=== PATIENT | male | born 1960 | race Caucasian/White ===

== ENCOUNTER 2017-01-16 11:31 | Emergency (ER) | payer OTHER ==
[2017-01-16 11:43] VITALS: TEMP 98.4
--- NOTE | 2017-01-16 12:30 | ED ---
General Adult HPI - General Chief complaint: Extremity Problem,Nontraumatic Stated complaint: leg swelling Time Seen by Provider: 01/16/17 11:52 Source: patient, RN notes reviewed, old records reviewed Mode of arrival: ambulatory Limitations: no limitations - History of Present Illness Initial comments: This is a 56-year-old male to the ER for evaluation. The patient comes in for evaluation of lower extremity edema and increased edema throughout his body. Patient currently going to have only treatment for hepatitis C, history of drug abuse history of alcohol abuse history of liver disease. Patient states he has increased swelling and redness of both lower extremities worse than the left with redness started to track up into his thigh area. Significant circumferential swelling of both lower extremities with increased redness and pain in the left leg. Patient denies specific fevers. No new medications - Related Data Home Medications Medication Instructions Recorded Confirmed Amitriptyline HCl [Elavil] 50 mg PO HS 01/16/17 01/16/17 Furosemide [Lasix] 20 mg PO DAILY 01/16/17 01/16/17 Gabapentin 600 mg PO TID 01/16/17 01/16/17 Methadone [Dolophine] 20 mg PO DAILY 01/16/17 01/16/17 Omeprazole [PriLOSEC] 20 mg PO AC-BID 01/16/17 01/16/17 Potassium Chloride [Klor-Con 20] 20 meq PO DAILY 01/16/17 01/16/17 Topiramate [Topamax] 50 mg PO TID 01/16/17 01/16/17 Previous Rx's Medication Instructions Recorded Cephalexin [Keflex] 500 mg PO Q6HR #40 cap 01/16/17 Allergies Allergy/AdvReac Type Severity Reaction Status Date / Time No Known Allergies Allergy Verified 01/16/17 12:55 Review of Systems ROS Statement: Those systems with pertinent positive or pertinent negative responses have been documented in the HPI. ROS Other: All systems not noted in ROS Statement are negative. Past Medical History Past Medical History: Seizure Disorder Additional Past Medical History / Comment(s): vertigo, chronic back pain, history of drug abuse-on methadone History of Any Multi-Drug Resistant Organisms: None Reported Past Surgical History: Orthopedic Surgery Additional Past Surgical History / Comment(s): left leg Past Psychological History: Depression Smoking Status: Current every day smoker Past Alcohol Use History: None Reported Past Drug Use History: Prescription Drug Abuse General Exam Limitations: no limitations General appearance: alert, in no apparent distress Head exam: Present: atraumatic, normocephalic, normal inspection Eye exam: Present: normal appearance, PERRL, EOMI. Absent: scleral icterus, conjunctival injection, periorbital swelling ENT exam: Present: normal exam, mucous membranes moist Neck exam: Present: normal inspection. Absent: tenderness, meningismus, lymphadenopathy Respiratory exam: Present: normal lung sounds bilaterally. Absent: respiratory distress, wheezes, rales, rhonchi, stridor Cardiovascular Exam: Present: regular rate, normal rhythm, normal heart sounds. Absent: systolic murmur, diastolic murmur, rubs, gallop, clicks GI/Abdominal exam: Present: soft, normal bowel sounds. Absent: distended, tenderness, guarding, rebound, rigid Extremities exam: Present: normal inspection, full ROM, normal capillary refill. Absent: tenderness, pedal edema, joint swelling, calf tenderness Back exam: Present: normal inspection Neurological exam: Present: alert, oriented X3, CN II-XII intact Psychiatric exam: Present: normal affect, normal mood Skin exam: Present: warm, dry, intact, normal color. Absent: rash Course Vital Signs 01/16/17 01/16/17 01/16/17 11:39 13:55 14:58 Temperature 98.4 F 98.4 F 98.4 F Pulse Rate 92 67 82 Respiratory 16 18 18 Rate Blood Pressure 127/60 115/57 119/66 O2 Sat by Pulse 93 L 95 95 Oximetry EKG Findings - EKG Comments: EKG Findings:: EKG shows sinus rhythm at 71, DC 150, QRS 86, QTC 421 Medical Decision Making - Medical Decision Making 56 male to ER for evaluation. Patient is here for evaluation of lower extremity edema, lower summary sialitis, ultrasound NEGATIVE FOR DVT, LAB WORK IS NORMAL, PATIENT IS RECOVERING DRUG ADDICT AND ALCOHOLIC WHO SUFFERS FROM HEPATITIS C - Lab Data Result diagrams: 01/16/17 12:45 01/16/17 12:45 Lab Results 01/16/17 01/16/17 01/16/17 Range/Units 12:45 12:45 12:45 WBC 4.4 (3.8-10.6) k/uL RBC 3.45 L (4.30-5.90) m/uL Hgb 11.0 L (13.0-17.5) gm/dL Hct 34.5 L (39.0-53.0) % MCV 100.0 (80.0-100.0) fL MCH 31.9 (25.0-35.0) pg MCHC 31.9 (31.0-37.0) g/dL RDW 14.9 (11.5-15.5) % Plt Count 128 L (150-450) k/uL Neutrophils % 56 % Lymphocytes % 33 % Monocytes % 5 % Eosinophils % 3 % Basophils % 1 % Neutrophils # 2.4 (1.3-7.7) k/uL Lymphocytes # 1.4 (1.0-4.8) k/uL Monocytes # 0.2 (0-1.0) k/uL Eosinophils # 0.1 (0-0.7) k/uL Basophils # 0.0 (0-0.2) k/uL Hypochromasia Slight Macrocytosis Slight PT (9.0-12.0) sec INR (<1.1) APTT (22.0-30.0) sec Sodium 144 (137-145) mmol/L Potassium 3.9 (3.5-5.1) mmol/L Chloride 110 H (98-107) mmol/L Carbon Dioxide 24 (22-30) mmol/L Anion Gap 10 mmol/L BUN 19 (9-20) mg/dL Creatinine 0.90 (0.66-1.25) mg/dL Est GFR (MDRD) Af Amer >60 (>60 ml/min/1.73 sqM) Est GFR (MDRD) Non-Af >60 (>60 ml/min/1.73 sqM) Glucose 101 H (74-99) mg/dL Calcium 8.6 (8.4-10.2) mg/dL Phosphorus 3.9 (2.5-4.5) mg/dL Magnesium 2.1 (1.6-2.3) mg/dL Total Bilirubin 0.5 (0.2-1.3) mg/dL AST 29 (17-59) U/L ALT 21 (21-72) U/L Alkaline Phosphatase 84 (38-126) U/L Total Creatine Kinase 157 (55-170) U/L CK-MB (CK-2) 2.9 H* (0.0-2.4) ng/mL CK-MB (CK-2) Rel Index 1.8 Troponin I <0.012 (0.000-0.034) ng/mL Total Protein 7.8 (6.3-8.2) g/dL Albumin 3.6 (3.5-5.0) g/dL 01/16/17 Range/Units 12:45 WBC (3.8-10.6) k/uL RBC (4.30-5.90) m/uL Hgb (13.0-17.5) gm/dL Hct (39.0-53.0) % MCV (80.0-100.0) fL MCH (25.0-35.0) pg MCHC (31.0-37.0) g/dL RDW (11.5-15.5) % Plt Count (150-450) k/uL Neutrophils % % Lymphocytes % % Monocytes % % Eosinophils % % Basophils % % Neutrophils # (1.3-7.7) k/uL Lymphocytes # (1.0-4.8) k/uL Monocytes # (0-1.0) k/uL Eosinophils # (0-0.7) k/uL Basophils # (0-0.2) k/uL Hypochromasia Macrocytosis PT 10.5 (9.0-12.0) sec INR 1.0 (<1.1) APTT 24.6 (22.0-30.0) sec Sodium (137-145) mmol/L Potassium (3.5-5.1) mmol/L Chloride (98-107) mmol/L Carbon Dioxide (22-30) mmol/L Anion Gap mmol/L BUN (9-20) mg/dL Creatinine (0.66-1.25) mg/dL Est GFR (MDRD) Af Amer (>60 ml/min/1.73 sqM) Est GFR (MDRD) Non-Af (>60 ml/min/1.73 sqM) Glucose (74-99) mg/dL Calcium (8.4-10.2) mg/dL Phosphorus (2.5-4.5) mg/dL Magnesium (1.6-2.3) mg/dL Total Bilirubin (0.2-1.3) mg/dL AST (17-59) U/L ALT (21-72) U/L Alkaline Phosphatase (38-126) U/L Total Creatine Kinase (55-170) U/L CK-MB (CK-2) (0.0-2.4) ng/mL CK-MB (CK-2) Rel Index Troponin I (0.000-0.034) ng/mL Total Protein (6.3-8.2) g/dL Albumin (3.5-5.0) g/dL - Radiology Data Radiology results: report reviewed (Ultrasound is negative for DVT), image reviewed Disposition Clinical Impression: Cellulitis, Bilateral leg edema Disposition: HOME SELF-CARE Condition: Good Instructions: Leg Edema (ED), Cellulitis (ED) Prescriptions: Cephalexin [Keflex] 500 mg PO Q6HR #40 cap Referrals: Azeem Marshall MD [Primary Care Provider] - 1-2 days Santiago Cifuentes MD [REFERRING] - 1-2 days Kamari Faust MD [STAFF PHYSICIAN] - 1-2 days
[2017-01-16 13:00] LABS: Basophils % (A) 1 %; CH 31.3; CHCM 31.5; Eosinophils # (A) 0.1 k/uL (0-0.7); Eosinophils % (A) 3 %; HCT 34.5 % (39.0-53.0); HDW 2.65; Hypochromasia Slight; Luc # (Auto) 0.14; Luc % (Auto) 3; Lymphocytes # (A) 1.4 k/uL (1.0-4.8); Lymphocytes % (A) 33 %; MCH 31.9 pg (25.0-35.0); MCHC 31.9 g/dL (31.0-37.0); Macrocytosis Slight; Mean Platelet Volume 7.4; Monocytes # (A) 0.2 k/uL (0-1.0); Monocytes % (A) 5 %; Neutrophils # (A) 2.4 k/uL (1.3-7.7); Neutrophils % (A) 56 %; RBC 3.45 m/uL (4.30-5.90); RDW 14.9 % (11.5-15.5); WBC 4.4 k/uL (3.8-10.6); WBC (Perox) 4.45
[2017-01-16 13:13] LABS: Partial Thromboplastin Time 24.6 sec (22.0-30.0); Prothrombin Time 10.5 sec (9.0-12.0)
[2017-01-16 13:16] LABS: ALT 21 U/L (21-72); AST 29 U/L (17-59); Alkaline Phosphatase 84 U/L (38-126); Anion Gap 10 mmol/L; Blood Urea Nitrogen 19 mg/dL (9-20); Calcium 8.6 mg/dL (8.4-10.2); Carbon Dioxide 24 mmol/L (22-30); Chloride 110 mmol/L (98-107); Glucose 101 mg/dL (74-99); Magnesium 2.1 mg/dL (1.6-2.3); Non-African American GFR(MDRD) >60 (>60 ml/min/1.73 sqM); Phosphorous 3.9 mg/dL (2.5-4.5); Potassium 3.9 mmol/L (3.5-5.1); Sodium 144 mmol/L (137-145); Total Bilirubin 0.5 mg/dL (0.2-1.3); Total Protein 7.8 g/dL (6.3-8.2)
[2017-01-16 13:31] LABS: Creatine Kinase 157 U/L (55-170)
[2017-01-16 13:44] LABS: Troponin I <0.012 ng/mL (0.000-0.034)
[2017-01-16 13:47] LABS: Creatine Kinase MB 2.9 ng/mL (0.0-2.4)
--- NOTE | 2017-01-16 13:47 | US ---
EXAMINATION TYPE: US venous doppler duplex LE DATE OF EXAM: 01/16/2017 1:36 PM COMPARISON: NONE CLINICAL HISTORY: Pain. SIDE PERFORMED: TECHNIQUE: The lower extremity deep venous system is examined utilizing real time linear array sonog joyce with graded compression, doppler sonography and color-flow sonography. VESSELS IMAGED: External Iliac Vein (EIV) Common Femoral Vein Deep Femoral Vein Greater Saphenous Vein * Femoral Vein Popliteal Vein Small Saphenous Vein * Proximal Calf Veins (* superficial vessels) Right Leg: No evidence of acute DVT as visualized. Superficial thrombus noted within right small sap henous vein Left Leg: No evidence of acute DVT as visualized Technical limitations due to patient's large body habitus, unable to visualize bilateral lower femora l vein for compression IMPRESSION: No evidence for DVT.
[2017-01-16 13:57] VITALS: RESP 18
[2017-01-16 15:01] VITALS: BP 119/66; PULSE 82
== END 2017-01-16 15:00 | disposition home or self-care (01) ==
LOC: EC 11:31
DX: L03.116 Cellulitis of left lower limb (principal); L03.115 Cellulitis of right lower limb; G40.909 Epilepsy, unspecified, not intractable, without status epilepticus; F32.9 Major depressive disorder, single episode, unspecified; F17.200 Nicotine dependence, unspecified, uncomplicated; Z79.899 Other long term (current) drug therapy
CPT/HCPCS: 36415; 93005; 80053; 82550; 82553; 83735; 84100; 84484; 85025; 85610; 85730; 87040; 93970; 99284; 96365; J0696

== ENCOUNTER 2017-01-21 21:41 | Inpatient (IN) | payer OTHER ==
--- NOTE | 2017-01-22 01:18 | XR ---
PROCEDURE: FILM CXR 2 VIEWS HISTORY: 56-year-old male with chest pain. COMPARISON: None TECHNIQUE: Frontal and lateral views of the chest were obtained. FINDINGS: Mildly enlarged cardiac silhouette. Mediastinal silhouette is within normal limits. Patchy consolidation in the right lung, may be due to pneumonia in the appropriate clinical setting. Followup chest x-ray is recommended within 4 weeks. Eventration of the right hemidiaphragm. Bones are unremarkable for age. IMPRESSION: Mildly enlarged cardiac silhouette. Patchy consolidation in the right lung, may be due to pneumonia in the appropriate clinical setting. Followup chest x-ray is recommended within 4 weeks. [employer] 01/22/17 01:28 Verify Receipt Verified receipt with ZOË Malone for THOMAS Garber on 01/22 01:28 (-04:00)
[2017-01-22 02:04] LABS: Appearance,Urine Clear (Clear); Bilirubin,Urine Negative (Negative); Glucose,Urine (UA) Negative (Negative); Ketones,Urine Negative (Negative); Leukocyte Esterase,Urine Negative (Negative); Nitrite,Urine Negative (Negative); Protein,Urine Negative (Negative); Specific Gravity,Urine 1.007 (1.001-1.035); UA Billing (MACRO vs. MICRO) CHEM
--- NOTE | 2017-01-22 02:06 | US ---
PROCEDURE: US VENOUS BILATERAL LOWER EXTREMITIES COMPARISON: Bilateral lower extremity DVT sonogram 01/16/2017 HISTORY: Bilateral lower extremity pain and swelling. TECHNIQUE: Real-time sonographic evaluation of the bilateral lower extremity deep venous systems was performed using linear array sonography with graded compression, doppler sonography/spectral waveform analysis, color-flow sonography, and augmentation. VESSELS IMAGED: External Iliac Vein (EIV) Common Femoral Vein Deep Femoral Vein Femoral Vein Popliteal Vein Proximal Calf Veins Evaluation is limited by body habitus and lower extremity edema. RIGHT: Appropriate compression, augmentation, and color flow identified within the visualized portions of the external iliac vein, common femoral vein, superior aspect of the greater saphenous vein, deep femoral vein, femoral vein, popliteal vein and posterior tibialis vein. Appropriate flow identified within visualized proximal calf veins. LEFT: Appropriate compression, augmentation, and color flow identified within the visualized portions of the external iliac vein, common femoral vein, superior aspect of the greater saphenous vein, deep femoral vein, femoral vein, popliteal vein and posterior tibialis vein. Appropriate flow identified within visualized proximal calf veins. IMPRESSION: 1. No evidence of DVT in the bilateral lower extremities.
--- NOTE | 2017-01-22 02:12 | ED ---
Skin/Abscess/FB HPI - General Chief complaint: Skin/Abscess/Foreign Body Stated complaint: Swollen legs Time Seen by Provider: 01/21/17 23:43 Source: patient, RN notes reviewed, old records reviewed Mode of arrival: wheelchair Limitations: no limitations - History of Present Illness Initial comments: This is a 56-year-old male with chief complaint of bilateral lower extremity swelling. Patient reports a family history of past 2 weeks. Patient states that they're both red. Patient states that his hands are also swelling. Patient reports his diagnosis was cellulitis. He reports that he is not any better after one week of Keflex. He states this became worse. Patient denies any fever or chills. He states that he is occasionally short of breath and has occasional chest pain. - Related Data Home Medications Medication Instructions Recorded Confirmed Amitriptyline HCl [Elavil] 50 mg PO HS 01/16/17 01/21/17 Furosemide [Lasix] 20 mg PO DAILY 01/16/17 01/21/17 Gabapentin 600 mg PO TID 01/16/17 01/21/17 Methadone [Dolophine] 20 mg PO DAILY 01/16/17 01/21/17 Omeprazole [PriLOSEC] 20 mg PO AC-BID 01/16/17 01/21/17 Potassium Chloride [Klor-Con 20] 20 meq PO DAILY 01/16/17 01/21/17 Topiramate [Topamax] 50 mg PO TID 01/16/17 01/21/17 Previous Rx's Medication Instructions Recorded Cephalexin [Keflex] 500 mg PO Q6HR #40 cap 01/16/17 Allergies Allergy/AdvReac Type Severity Reaction Status Date / Time No Known Allergies Allergy Verified 01/21/17 22:23 Review of Systems ROS Statement: Those systems with pertinent positive or pertinent negative responses have been documented in the HPI. ROS Other: All systems not noted in ROS Statement are negative. Past Medical History Past Medical History: Seizure Disorder Additional Past Medical History / Comment(s): vertigo, chronic back pain, history of drug abuse-on methadone History of Any Multi-Drug Resistant Organisms: None Reported Past Surgical History: Orthopedic Surgery Additional Past Surgical History / Comment(s): left leg Past Psychological History: Depression Smoking Status: Current every day smoker Past Alcohol Use History: None Reported Past Drug Use History: None Reported General Exam - General Exam Comments Initial Comments: Pleasant 36-year-old male. No distress. Limitations: no limitations General appearance: alert, in no apparent distress Head exam: Present: atraumatic, normocephalic, normal inspection Eye exam: Present: normal appearance, PERRL, EOMI. Absent: scleral icterus, conjunctival injection, periorbital swelling ENT exam: Present: normal exam, mucous membranes moist Neck exam: Present: normal inspection. Absent: tenderness, meningismus, lymphadenopathy Respiratory exam: Present: normal lung sounds bilaterally. Absent: respiratory distress, wheezes, rales, rhonchi, stridor Cardiovascular Exam: Present: regular rate, normal rhythm, normal heart sounds. Absent: systolic murmur, diastolic murmur, rubs, gallop, clicks GI/Abdominal exam: Present: soft, normal bowel sounds. Absent: distended, tenderness, guarding, rebound, rigid Extremities exam: Present: pedal edema (She has significant bilateral pedal edema. Unable to detect dorsalis pedal pulse due to the swelling. Patient has redness extending up the bilateral legs into the upper thighs.). Absent: normal inspection Back exam: Present: normal inspection Neurological exam: Present: alert, oriented X3, CN II-XII intact Psychiatric exam: Present: normal affect, normal mood Skin exam: Present: warm, dry, intact, normal color. Absent: rash Course Vital Signs 01/21/17 01/22/17 22:19 04:10 Temperature 98.7 F Pulse Rate 86 88 Respiratory 20 16 Rate Blood Pressure 126/64 110/53 O2 Sat by Pulse 97 98 Oximetry Medical Decision Making - Medical Decision Making Is a 56-year-old male with chief complaint of bilateral lower edema and redness. Patient reports inciting repair with Keflex. Patient has bilateral hand swelling as well. Unable to detect dorsalis pedal pulse due to the amount of edema. Patient received bilateral lower extremity Doppler ultrasound. He also showed a chest x-ray with a widened mediastinum and infiltrate. Patient lab work shows elevated d-dimer of 1.37. CT TODD chest was obtained. No evidence of PE. Ultrasound bilateral lower extremities is negative for blood clots. Evidence of multiple lymph nodes and cirrhosis. Patient lab work is all relatively benign at this time. Negative BNP. Patient does have significant edema in all 4 extremities. Patient will be admitted this time consult with cardiology. Less likely to think that the redness over his legs is related to a cellulitis given negative for white blood cell count. Likely related to peripheral vascular disease. Started on Lasix. Patient agrees to admission. Patient does have a history of previous IV drug use, alcoholism. - Lab Data Result diagrams: 01/22/17 01:45 01/22/17 01:45 Lab Results 01/22/17 01/22/17 01/22/17 Range/Units 01:45 01:45 01:45 WBC 5.5 (3.8-10.6) k/uL RBC 3.54 L (4.30-5.90) m/uL Hgb 11.3 L (13.0-17.5) gm/dL Hct 34.4 L (39.0-53.0) % MCV 97.0 (80.0-100.0) fL MCH 31.8 (25.0-35.0) pg MCHC 32.8 (31.0-37.0) g/dL RDW 14.9 (11.5-15.5) % Plt Count 136 L (150-450) k/uL Neutrophils % (Manual) 49.0 % Band Neutrophils % 1.0 % Lymphocytes % (Manual) 41.0 % Monocytes % (Manual) 4.0 % Eosinophils % (Manual) 5.0 % Neutrophils # (Manual) 2.8 (1.3-7.7) k/uL Lymphocytes # (Manual) 2.3 (1.0-4.8) k/uL Monocytes # (Manual) 0.2 (0-1.0) k/uL Eosinophils # (Manual) 0.3 (0-0.7) k/uL Nucleated RBCs 0 (0-0) /100 WBC Polychromasia Present Poikilocytosis (manual Present Anisocytosis (manual) Present PT (9.0-12.0) sec INR (<1.1) APTT (22.0-30.0) sec D-Dimer (<0.60) mg/L FEU Sodium 140 (137-145) mmol/L Potassium 4.3 (3.5-5.1) mmol/L Chloride 107 (98-107) mmol/L Carbon Dioxide 24 (22-30) mmol/L Anion Gap 9 mmol/L BUN 14 (9-20) mg/dL Creatinine 0.90 (0.66-1.25) mg/dL Est GFR (MDRD) Af Amer >60 (>60 ml/min/1.73 sqM) Est GFR (MDRD) Non-Af >60 (>60 ml/min/1.73 sqM) Glucose 90 (74-99) mg/dL Calcium 8.9 (8.4-10.2) mg/dL Magnesium 2.2 (1.6-2.3) mg/dL Total Bilirubin 0.5 (0.2-1.3) mg/dL AST 34 (17-59) U/L ALT 24 (21-72) U/L Alkaline Phosphatase 103 (38-126) U/L Total Creatine Kinase 232 H (55-170) U/L CK-MB (CK-2) 4.4 H* (0.0-2.4) ng/mL CK-MB (CK-2) Rel Index 1.9 Troponin I <0.012 (0.000-0.034) ng/mL NT-Pro-B Natriuret Pep pg/mL Total Protein 8.5 H (6.3-8.2) g/dL Albumin 3.9 (3.5-5.0) g/dL Urine Color Urine Appearance (Clear) Urine pH (5.0-8.0) Ur Specific [place] (1.001-1.035) Urine Protein (Negative) Urine Glucose (UA) (Negative) Urine Ketones (Negative) Urine Blood (Negative) Urine Nitrite (Negative) Urine Bilirubin (Negative) Urine Urobilinogen (<2.0) mg/dL Ur Leukocyte Esterase (Negative) 01/22/17 01/22/17 01/22/17 Range/Units 01:45 01:45 03:00 WBC (3.8-10.6) k/uL RBC (4.30-5.90) m/uL Hgb (13.0-17.5) gm/dL Hct (39.0-53.0) % MCV (80.0-100.0) fL MCH (25.0-35.0) pg MCHC (31.0-37.0) g/dL RDW (11.5-15.5) % Plt Count (150-450) k/uL Neutrophils % (Manual) % Band Neutrophils % % Lymphocytes % (Manual) % Monocytes % (Manual) % Eosinophils % (Manual) % Neutrophils # (Manual) (1.3-7.7) k/uL Lymphocytes # (Manual) (1.0-4.8) k/uL Monocytes # (Manual) (0-1.0) k/uL Eosinophils # (Manual) (0-0.7) k/uL Nucleated RBCs (0-0) /100 WBC Polychromasia Poikilocytosis (manual Anisocytosis (manual) PT 10.6 (9.0-12.0) sec INR 1.1 (<1.1) APTT 24.6 (22.0-30.0) sec D-Dimer 1.34 H (<0.60) mg/L FEU Sodium (137-145) mmol/L Potassium (3.5-5.1) mmol/L Chloride (98-107) mmol/L Carbon Dioxide (22-30) mmol/L Anion Gap mmol/L BUN (9-20) mg/dL Creatinine (0.66-1.25) mg/dL Est GFR (MDRD) Af Amer (>60 ml/min/1.73 sqM) Est GFR (MDRD) Non-Af (>60 ml/min/1.73 sqM) Glucose (74-99) mg/dL Calcium (8.4-10.2) mg/dL Magnesium (1.6-2.3) mg/dL Total Bilirubin (0.2-1.3) mg/dL AST (17-59) U/L ALT (21-72) U/L Alkaline Phosphatase (38-126) U/L Total Creatine Kinase (55-170) U/L CK-MB (CK-2) (0.0-2.4) ng/mL CK-MB (CK-2) Rel Index Troponin I (0.000-0.034) ng/mL NT-Pro-B Natriuret Pep 106 pg/mL Total Protein (6.3-8.2) g/dL Albumin (3.5-5.0) g/dL Urine Color Yellow Urine Appearance Clear (Clear) Urine pH 7.0 (5.0-8.0) Ur Specific [place] 1.007 (1.001-1.035) Urine Protein Negative (Negative) Urine Glucose (UA) Negative (Negative) Urine Ketones Negative (Negative) Urine Blood Negative (Negative) Urine Nitrite Negative (Negative) Urine Bilirubin Negative (Negative) Urine Urobilinogen 3.0 (<2.0) mg/dL Ur Leukocyte Esterase Negative (Negative) 01/22/17 05:48 EKG shows normal sinus rhythm. Left axis deviation. Possibly inferior infarct age undetermined. Ventricular rate 70 bpm. AR interval 150 mg per duration 90 ms. QT QTC 372/4 and normal sensory noticed of this elevation or T-wave inversion. - Radiology Data Radiology results: report reviewed CT [facility] chest shows signs of cirrhosis. Double small mildly enlarged upper abdominal lymph nodes. Multiple small and mildly enlarged mediastinal bilateral hilar nodes. No evidence of PE. Chest x-ray shows cardiomegaly. Possible right lower lobe pneumonia. Disposition Clinical Impression: Bilateral leg edema, Intermittent chest pain, D-dimer, elevated Disposition: ADMITTED IP TO THIS HOSP Condition: Good Time of Disposition: 03:36
[2017-01-22 02:17] LABS: ALT 24 U/L (21-72); AST 34 U/L (17-59); Alkaline Phosphatase 103 U/L (38-126); Anion Gap 9 mmol/L; Blood Urea Nitrogen 14 mg/dL (9-20); Calcium 8.9 mg/dL (8.4-10.2); Carbon Dioxide 24 mmol/L (22-30); Chloride 107 mmol/L (98-107); Glucose 90 mg/dL (74-99); Magnesium 2.2 mg/dL (1.6-2.3); Non-African American GFR(MDRD) >60 (>60 ml/min/1.73 sqM); Potassium 4.3 mmol/L (3.5-5.1); Sodium 140 mmol/L (137-145); Total Bilirubin 0.5 mg/dL (0.2-1.3); Total Protein 8.5 g/dL (6.3-8.2)
[2017-01-22 02:30] LABS: Creatine Kinase 232 U/L (55-170)
[2017-01-22 02:36] LABS: CH 31.9; HCT 34.4 % (39.0-53.0); HDW 2.91; HGB 11.3 gm/dL (13.0-17.5); MCH 31.8 pg (25.0-35.0); MCHC 32.8 g/dL (31.0-37.0); RBC 3.54 m/uL (4.30-5.90); RDW 14.9 % (11.5-15.5); WBC 5.5 k/uL (3.8-10.6); WBC (Perox) 5.35
[2017-01-22 02:43] LABS: Troponin I <0.012 ng/mL (0.000-0.034)
[2017-01-22 02:52] LABS: Creatine Kinase MB 4.4 ng/mL (0.0-2.4)
[2017-01-22] MEDS ORDERED: FUROSEMIDE 10 MG/ML 10 ML VIAL IV STA (03:12)
[2017-01-22 03:35] LABS: INR 1.1 (<1.1); Partial Thromboplastin Time 24.6 sec (22.0-30.0); Prothrombin Time 10.6 sec (9.0-12.0)
[2017-01-22] MEDS ORDERED: IBUPROFEN 400 MG TAB PO PRN (03:37)
[2017-01-22] MEDS ORDERED: KETOROLAC 30 MG/ML 1 ML VIAL IVP PRN (03:37)
[2017-01-22] MEDS ORDERED: ONDANSETRON 4 MG/2 ML VIAL IVP PRN (03:37)
[2017-01-22] MEDS ORDERED: ALPRAZolam 0.25 MG TAB PO PRN (03:37)
[2017-01-22] MEDS ORDERED: NALOXONE 0.4 MG/ML 1 ML VIAL IV PRN (03:37)
[2017-01-22] MEDS ORDERED: RX INFO: IV CONTRAST WAS GIVEN 1 EACH MISC MISCELLANE PRN (03:54)
[2017-01-22 03:55] LABS: Add Differential Manual Differential
[2017-01-22 03:57] LABS: Nucleated Red Blood Cells 0 /100 WBC (0-0); Total Cells Counted 100
[2017-01-22 03:58] LABS: Polychromasia Present
--- NOTE | 2017-01-22 05:35 | CT ---
ADDENDUM - Added by Indigo Lainez M.D. on 01/22/2017 8:08 AM (-07:00) COMPARISON: CT chest 06/14/2013 Multiple small and mildly enlarged mediastinal, hilar, and upper abdominal lymph nodes are similar to prior. PROCEDURE: CTA CHEST HISTORY: 56-year-old male with chest pain. COMPARISON: Chest radiograph 01/22/2017 at 0033 TECHNIQUE: After administration of 85 mL of Omnipaque 350 contrast material intravenously, CT imaging was obtained through the chest. Coronal and sagittal reformations were performed. DOSE: Total Exam volume computed tomography dose index (CTDIvol) = 225.2 mGy and Dose Length Product (DLP) = 973.5 mGY-cm. This CT exam was performed using one or more of the following dose reduction techniques: automated exposure control, adjustment of the mA and/or kV according to patient size, and/or use of iterative reconstruction technique. FINDINGS: Evaluation is limited by motion degradation. Soft tissues: Visualized portions of the thyroid gland are unremarkable. There are multiple small and mildly enlarged mediastinal and bilateral hilar lymph nodes. No significant axillary lymphadenopathy. The heart and great vessels are within normal limits. No evidence of pulmonary embolism to the level of the lobar arteries. The esophagus is unremarkable. Limited evaluation of the upper abdomen demonstrates hepatic morphology with cirrhosis. There are multiple small and mildly enlarged upper abdominal lymph nodes. There is colonic interposition anterior to the liver. Lungs: Bilateral atelectasis. There are a few small scattered calcified pulmonary nodules, likely due to prior granulomatous exposure. No pleural effusion. The airway is patent. Bones: Chronic posttraumatic right rib deformities. Chronic fractures of the C7 and T1 spinous processes. Mild multilevel degenerative changes in the thoracic spine IMPRESSION: 1. Cirrhosis. 2. Double small and mildly enlarged upper abdominal lymph nodes. 3. Multiple small and mildly enlarged mediastinal and bilateral hilar lymph nodes. 4. No evidence of pulmonary embolism to the level of the lobar arteries. 5. Other findings as detailed above.
[2017-01-22] MEDS: SODIUM CHLORIDE 0.9% 1,000 ML IV SCH ×3 (08:10→21:04)
[2017-01-22] MEDS: POTASSIUM CHLORIDE ER 20 MEQ TAB.ER PO SCH (08:24)
[2017-01-22] MEDS: TOPIRAMATE 25 MG TAB PO SCH ×3 (08:24→21:05)
[2017-01-22] MEDS: GABAPENTIN 300 MG CAP PO SCH ×3 (08:24→21:43)
[2017-01-22] MEDS: PANTOPRAZOLE 40 MG/10 ML VIAL IV SCH (08:25)
[2017-01-22] MEDS: METHADONE 10 MG TAB PO SCH (08:25)
[2017-01-22] MEDS: PANTOPRAZOLE 40 MG TABLET PO SCH ×2 (08:26→17:04)
[2017-01-22] MEDS ORDERED: IV VANCOMYCIN PER PHARMACY 1 EACH MISC MISCELLANE PRN (14:56)
--- NOTE | 2017-01-22 15:59 | P.CRDCN ---
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 The patient presented to the hospital a few days before with swelling of the lower extremities and he was diagnosed with cellulitis and was discharged home. He did not feel better and the swelling has progressed. He denies having any exertional dyspnea, orthopnea, or PND. He did not have any symptoms of chest pain or discomfort. The patient is not aware of any prior cardiac history and never been diagnosed was congestive heart failure in the past. He underwent bilateral lower extremities venous duplex study which came in to be unremarkable for DVT. The EKG showed sinus rhythm with low-voltage QRS and without any ischemic changes. The patient was admitted to the hospital and was started on antibiotic for cellulitis. I am going to add Lasix IV to the current medical treatment. Clearly he does have bilateral lower extremities edema in addition to the cellulitis. We'll obtain an echocardiogram was Doppler as well. Past Medical History Past Medical History: Seizure Disorder Additional Past Medical History / Comment(s): vertigo, chronic back pain, history of drug abuse-on methadone History of Any Multi-Drug Resistant Organisms: None Reported Past Surgical History: Orthopedic Surgery Additional Past Surgical History / Comment(s): left leg Past Psychological History: Depression Smoking Status: Current every day smoker Past Alcohol Use History: None Reported Past Drug Use History: None Reported Medications and Allergies Home Medications Medication Instructions Recorded Confirmed Type Amitriptyline HCl [Elavil] 50 mg PO HS 01/16/17 01/22/17 History Furosemide [Lasix] 20 mg PO DAILY 01/16/17 01/22/17 History Gabapentin 600 mg PO TID 01/16/17 01/22/17 History Omeprazole [PriLOSEC] 20 mg PO AC-BID 01/16/17 01/22/17 History Potassium Chloride [Klor-Con 20] 20 meq PO DAILY 01/16/17 01/22/17 History Topiramate [Topamax] 50 mg PO BID 01/16/17 01/22/17 History Meclizine HCl 12.5 mg PO TID 01/22/17 01/22/17 History Methadone HCl [Methadone Intensol] 120 mg PO DAILY 01/22/17 01/22/17 History Allergies Allergy/AdvReac Type Severity Reaction Status Date / Time No Known Allergies Allergy Verified 01/22/17 08:49 Physical Exam Vitals: Vital Signs Temp Pulse Resp BP Pulse Ox 01/22/17 12:00 97.6 F 81 16 101/54 95 01/22/17 08:00 97.6 F 81 16 120/56 94 L 01/22/17 06:28 77 18 01/22/17 05:04 97.1 F L 77 18 136/84 97 Intake and Output 01/22/17 01/22/17 01/22/17 06:59 14:59 22:59 Output Total 1999 Balance -1999 Output: Urine 1999 Other: Voiding Method Toilet Toilet Urinal Urinal Weight 136.078 kg - Constitutional General appearance: no acute distress - Respiratory Respiratory: bilateral: CTA - Cardiovascular Rhythm: regular Heart sounds: normal: S1, S2 Results 01/22/17 01:45 01/22/17 01:45 Current Medications Generic Name Dose Route Start Last Admin Trade Name Freq PRN Reason Stop Dose Admin Alprazolam 0.25 mg 01/22/17 03:37 Xanax PO Q6HR PRN Anxiety Amitriptyline HCl 50 mg 01/22/17 21:00 Elavil PO HS LUCHO Gabapentin 600 mg 01/22/17 09:00 01/22/17 08:24 Neurontin PO 600 mg TID LUCHO Administration Sodium Chloride 1,000 mls @ 100 mls/hr 01/22/17 03:15 01/22/17 08:10 Saline 0.9% IV Not Given .Q10H LUCHO Vancomycin HCl 2,000 mg/ 500 mls @ 167 mls/hr 01/22/17 16:00 Sodium Chloride IVPB 01/22/17 18:59 ONCE ONE Vancomycin HCl 2,000 mg/ 500 mls @ 167 mls/hr 01/23/17 06:00 Sodium Chloride IVPB Q12H LUCHO Ibuprofen 400 mg 01/22/17 03:37 Motrin PO Q6HR PRN Mild Pain or Fever > 100.5 Ketorolac Tromethamine 30 mg 01/22/17 03:37 Toradol IVP 01/27/17 03:38 Q6HR PRN Moderate Pain Methadone HCl 20 mg 01/22/17 09:00 01/22/17 08:25 Dolophine PO 20 mg DAILY LUCHO Administration Miscellaneous Information 1 each 01/22/17 03:54 Rx Info: Iv Contrast Was Given MISCELLANE 01/24/17 03:54 DAILY PRN Per Protocol Naloxone HCl 0.2 mg 01/22/17 03:37 Narcan IV Q2M PRN Opioid Reversal Ondansetron HCl 4 mg 01/22/17 03:37 Zofran IVP Q8HR PRN Nausea And Vomiting Pantoprazole Sodium 40 mg 01/22/17 09:00 01/22/17 08:25 Protonix IV 40 mg DAILY LUCHO Administration Pantoprazole Sodium 40 mg 01/22/17 07:30 01/22/17 08:26 Protonix PO Not Given AC-BID LUCHO Potassium Chloride 20 meq 01/22/17 09:00 01/22/17 08:24 K-Dur 20 PO 20 meq DAILY LUCHO Administration Topiramate 50 mg 01/22/17 09:00 01/22/17 08:24 Topamax PO 50 mg TID LUCHO Administration Intake and Output 01/22/17 01/22/17 01/22/17 06:59 14:59 22:59 Output Total 1999 -1999 Output: Urine 1999 Other: Voiding Method Toilet Toilet Urinal Urinal Weight 136.078 kg Assessment and Plan Plan: Assessment Bilateral lower extremities edema Bilateral lower extremity cellulitis Obesity Plan The patient is on antibiotic I would add Lasix IV to the current medical treatment Obtain an echocardiogram was Doppler Follow-up with the patient
[2017-01-22] MEDS ORDERED: VANCOMYCIN 2,000 MG in SODIUM CHLORIDE 0.9% 500 ML IVPB ONE (16:00)
--- NOTE | 2017-01-22 19:06 | HP ---
DATE OF ADMISSION: 01/22/2017 CHIEF COMPLAINT: Swelling particularly in the lower extremities and pain in the left lower leg. HISTORY OF PRESENT ILLNESS: This is the first admission for this 56-year-old white male. He came to the emergency room because of pain in the left lower leg. He is probably developing cellulitis. He has had a compound fracture of the lower leg in the past. He has had no fever or chills and he presently is afebrile. REVIEW OF SYSTEMS: He has had no neurologic problems, chest pain, shortness of breath, heart disease, hypertension, murmurs, rheumatic fever, orthopnea, PND, abdominal pain, nausea, vomiting, melena, hematochezia, colitis, diverticulosis, diverticulitis, hemorrhoids, jaundice, hepatitis, cirrhosis, hematuria, frequency, urgency, dysuria, renal disease, diabetes, et cetera. Past medical history, family history, personal and social histories reveal that he has a history of seizure disorder. He is not allergic to any medications. He takes: 1. Topamax. 2. Neurontin. 3. Elavil. 4. Prilosec. 5. Antivert. 6. He is apparently on methadone. He states he is on 120 mg a day. He smokes about a pack a day, but does not drink. PHYSICAL EXAM: Blood pressure 107/59, pulse 87, respirations 18. He is afebrile. GENERAL: Appeared to be obese and a little bit lethargic. HEENT: Head, ears, eyes, nose, mouth, and throat were normal. NECK: Neck veins not distended. Chest is clear. Cardiac exam is normal. No murmurs or extra sounds. ABDOMEN: Soft, nontender. Extremities demonstrated cellulitis of both lower legs with the left being a little bit worse than the right and there are multiple scars in the left lower leg. Pulses are good. NEUROLOGICAL: Intact. IMPRESSION: 1. Cellulitis of the lower extremities. 2. History of compound fracture of the left lower leg. 3. Seizure disorder. 4. History of narcotic abuse. PLAN: 1. Bed rest. 2. IV fluids. 3. Intravenous antibiotics.
[2017-01-22] MEDS: FUROSEMIDE 10 MG/ML 4 ML VIAL IV SCH (21:05)
[2017-01-22] MEDS: AMITRIPTYLINE HCL 50 MG TAB PO SCH (21:05)
[2017-01-23] MEDS: VANCOMYCIN 2,000 MG in SODIUM CHLORIDE 0.9% 500 ML IVPB SCH ×2 (05:55→17:51)
[2017-01-23] MEDS: TOPIRAMATE 25 MG TAB PO SCH ×3 (08:36→21:20)
[2017-01-23] MEDS: GABAPENTIN 300 MG CAP PO SCH ×3 (08:36→21:20)
[2017-01-23] MEDS: PANTOPRAZOLE 40 MG TABLET PO SCH ×2 (08:37→17:50)
[2017-01-23] MEDS: PANTOPRAZOLE 40 MG/10 ML VIAL IV SCH (08:37)
[2017-01-23] MEDS: FUROSEMIDE 10 MG/ML 4 ML VIAL IV SCH ×2 (08:37→20:34)
[2017-01-23] MEDS: POTASSIUM CHLORIDE ER 20 MEQ TAB.ER PO SCH (08:37)
[2017-01-23 08:50] LABS: Anion Gap 9 mmol/L; Blood Urea Nitrogen 16 mg/dL (9-20); Calcium 8.5 mg/dL (8.4-10.2); Carbon Dioxide 26 mmol/L (22-30); Chloride 105 mmol/L (98-107); Glucose 95 mg/dL (74-99); Non-African American GFR(MDRD) >60 (>60 ml/min/1.73 sqM); Potassium 4.1 mmol/L (3.5-5.1); Sodium 140 mmol/L (137-145)
[2017-01-23] MEDS: METHADONE 10 MG TAB PO SCH ×2 (10:56→11:59)
--- NOTE | 2017-01-23 12:15 | ECHOF ---
Referral Reason:nstemi MEASUREMENTS -------- HEIGHT: 182.9 cm WEIGHT: 136.1 kg BP: 131/77 RVIDd: 3.5 cm (< 3.3) IVSd: 1.5 cm (0.6 - 1.1) LVIDd: 4.3 cm (3.9 - 5.3) LVPWd: 1.5 cm (0.6 - 1.1) IVSs: 1.8 cm LVIDs: 3.1 cm LVPWs: 2.0 cm LA Diam: 3.9 cm (2.7 - 3.8) Ao Diam: 3.2 cm (2.0 - 3.7) AV Cusp: 2.5 cm (1.5 - 2.6) MV EXCURSION: 18.807 mm (> 18.000) MV EF SLOPE: 98 mm/s (70 - 150) EPSS: 0.4 cm MV E Bonifacio: 0.87 m/s MV DecT: 194 ms MV A Bonifacio: 0.66 m/s MV E/A Ratio: 1.33 RAP: 5.00 mmHg RVSP: 40.40 mmHg FINDINGS -------- Sinus rhythm. This was a technically difficult study with suboptimal views. The left ventricular size is normal. There is moderate concentric left ventricular hypertrophy. Overall left ventricular systolic function is normal with, an EF between 60 - 65 %. The right ventricle is mildly enlarged. The left atrial size is normal. The right atrium is normal in size. 1.5mg of Definity was utilized for enhancement of images. No enhancement was noted and images remained poor. The aortic valve is trileaflet and appears structurally normal. The mitral valve is normal. Mild tricuspid regurgitation present. There is mild pulmonary hypertension. The right ventricular systolic pressure, as measured by Doppler, is 40.40mmHg. Trace/mild (physiologic) pulmonic regurgitation. The aortic root size is normal. The pericardium is normal. CONCLUSIONS -------- 1. Sinus rhythm. 2. The mitral valve is normal. 3. Mild tricuspid regurgitation present. 4. There is mild pulmonary hypertension. 5. The right ventricular systolic pressure, as measured by Doppler, is 40.40mmHg. 6. Trace/mild (physiologic) pulmonic regurgitation. 7. The aortic root size is normal. 8. The pericardium is normal. 9. This was a technically difficult study with suboptimal views. 10. The left ventricular size is normal. 11. There is moderate concentric left ventricular hypertrophy. 12. Overall left ventricular systolic function is normal with, an EF between 60 - 65 %. 13. The right ventricle is mildly enlarged. 14. The left atrial size is normal. 15. 1.5mg of Definity was utilized for enhancement of images. No enhancement was noted and images remained poor. 16. The aortic valve is trileaflet and appears structurally normal. TRACK VEHICLE REPAIRER: Sharee Mitchell RDCS
--- NOTE | 2017-01-23 17:53 | PN ---
Mr. Zamorano is a gentleman with lower extremity edema who was seen by Dr. Leslie yesterday. He had an echocardiogram performed today which shows a somewhat technically a difficult study, and even with Definity I could not see good images, but overall ejection fraction is well preserved. There is mild to moderate pulmonary hypertension and mild right ventricular enlargement. The lower extremity edema is probably related to that. He is resting comfortably. He denies chest pain. Blood pressure is 130/70, pulse rate 70 per minute. There is JVD of 1 cm; no carotid bruit. S1, S2 heard normally. Heart sounds are heard somewhat distantly. I do not hear any significant murmurs. Lungs reveal diminished air entry. Abdomen and lower extremity exam unchanged. Lower extremity edema seems to be somewhat better. IMPRESSION: 1. Lower extremity edema related to probably local causes and venous insufficiency. There is also some cellulitis. 2. No evidence to suggest any diastolic of systolic heart failure. I will continue Lasix IV for now, check a BMP tomorrow. Will consider switching him to oral Lasix in the morning. I discussed my thoughts in detail with the patient. Thank you very much for the consult.
[2017-01-23] MEDS: SODIUM CHLORIDE 0.9% 1,000 ML IV SCH (17:54)
[2017-01-23] MEDS: AMITRIPTYLINE HCL 50 MG TAB PO SCH (20:34)
[2017-01-24] MEDS ORDERED: VANCOMYCIN TROUGH DUE 1 EACH MISC MISCELLANE ONE (05:00)
[2017-01-24] MEDS: VANCOMYCIN 2,000 MG in SODIUM CHLORIDE 0.9% 500 ML IVPB SCH (05:28)
[2017-01-24 07:40] VITALS: BP 130/73; PULSE 60; RESP 16; TEMP 97.5
[2017-01-24] MEDS: GABAPENTIN 300 MG CAP PO SCH (08:45)
[2017-01-24] MEDS: POTASSIUM CHLORIDE ER 20 MEQ TAB.ER PO SCH (08:45)
[2017-01-24] MEDS: PANTOPRAZOLE 40 MG TABLET PO SCH (08:45)
[2017-01-24] MEDS: TOPIRAMATE 25 MG TAB PO SCH (08:46)
[2017-01-24] MEDS: METHADONE 10 MG TAB PO SCH (08:48)
[2017-01-24] MEDS ORDERED: FUROSEMIDE 40 MG TAB PO SCH (09:00)
[2017-01-24 09:54] VITALS: BMI 42.1
--- NOTE | 2017-01-24 10:23 | P.DS ---
Providers Date of admission: 01/22/17 04:41 Expected date of discharge: 01/24/17 Attending physician: Epi Coffey Consults: 01/22/17 05:28 Consult Physician Stat Consulting Provider: Rasheed Leslie Consult Reason/Comments: bilateral edema, intermittent chest pain Do you want consulting provider notified?: Yes, Notify in am Primary care physician: Stated None Hospital Course: 56-year-old who presented with a chief complaint of lower extremity edema. Patient has evidence of cellulitis on admission. Echocardiogram obtained showed no evidence of diastolic or systolic heart failure. Cardiology did participate in the plan of care. Patient was started on IV Lasix and did diurese and there was a noted improvement in patient's clinical status. Patient was felt to be appropriate to be discharged home. Patient presented to the hospital with a chief complaint of developing edema to the lower extremities ongoing for the past several days. A 12-lead EKG showed sinus. Patient was started on IV antibiotics for the cellulitis. Patient did have a computed tomography scan of the chest showed no evidence of a pulmonary emboli. Additionally patient had bilateral Doppler studies to the lower extremities it showed no evidence of a DVT. Patient was felt to be appropriate to be discharged home Impression discharge diagnosis Present on admission bilateral lower extremity cellulitis Echocardiogram this admission preserved LV function no evidence of diastolic or systolic heart failure Morbid obesity BMI 42 History of drug abuse on methadone Current every day smoker 1 pack daily greater than a 20 year history The above dictated assessment and findings were discussed with dr coffey . Impression and the plan of care have been dictated as directed. Jeniffer Smith nurse practitioner acting as a scribe for dr coffey Patient Condition at Discharge: Good Plan - Discharge Summary New Discharge Prescriptions: Clindamycin HCl [Cleocin] 300 mg PO Q6HR #40 cap Furosemide [Lasix] 40 mg PO DAILY #30 tab Discharge Medication List Amitriptyline HCl [Elavil] 50 mg PO HS 01/16/17 [History] Gabapentin 600 mg PO TID 01/16/17 [History] Omeprazole [PriLOSEC] 20 mg PO AC-BID 01/16/17 [History] Potassium Chloride [Klor-Con 20] 20 meq PO DAILY 01/16/17 [History] Topiramate [Topamax] 50 mg PO BID 01/16/17 [History] Meclizine HCl 12.5 mg PO TID 01/22/17 [History] Methadone HCl [Methadone Intensol] 120 mg PO DAILY 01/22/17 [History] Clindamycin HCl [Cleocin] 300 mg PO Q6HR #40 cap 01/24/17 [Rx] Furosemide [Lasix] 40 mg PO DAILY #30 tab 01/24/17 [Rx] Follow up Appointment(s)/Referral(s): None,Stated [Primary Care Provider] - 1-2 days Epi Coffey MD [STAFF PHYSICIAN] - 01/26/17 Discharge Disposition: HOME SELF-CARE
[2017-01-24 10:25] LABS: Anion Gap 10 mmol/L; Blood Urea Nitrogen 16 mg/dL (9-20); Carbon Dioxide 28 mmol/L (22-30); Chloride 104 mmol/L (98-107); Glucose 130 mg/dL (74-99); Non-African American GFR(MDRD) >60 (>60 ml/min/1.73 sqM); Potassium 3.8 mmol/L (3.5-5.1); Sodium 142 mmol/L (137-145)
--- NOTE | 2017-01-24 11:33 | PN ---
Mr. Zamorano feels better. His weight is actually higher than yesterday, but I think this is an error. He feels better. His edema of lower extremities has improved. Denies chest pain. He has no shortness of breath, ambulating without symptoms. His blood pressure today is 130/70, pulse rate is 62 per minute, regular. There is JVD of 1 cm. No carotid bruit. S1, S2 heard normally, but distantly. Lungs are clear. Abdomen is soft, nontender. Lower extremity edema is improved remarkably. From a cardiac standpoint, no intervention is necessary. He can be discharged on oral Lasix. His potassium level was good yesterday, but he needs to have electrolytes checked in one week and I discussed this with the patient. He will have it performed through his primary care physician, Dr. Marshall. PHYSICAL EXAM: There are no new significant findings. His edema has improved and he can be discharged today.
--- NOTE | 2017-01-24 18:39 | PN ---
CHIEF COMPLAINT: Generalized edema and cellulitis of the lower extremities. HISTORY OF PRESENT ILLNESS: This gentleman is doing a little bit better. Antibiotics are improving the pain and the edema has gone down. PHYSICAL EXAMINATION: Chest is clear. Cardiac exam is normal. ABDOMEN: Soft and nontender. IMPRESSION: Cellulitis of both lower extremities with generalized edema. PLAN: Continue with IV fluids and antibiotics. This is thought to be related to his infection and stasis problems in the lower extremities.
--- NOTE | 2017-01-24 22:51 | PN ---
DATE OF SERVICE: 01/24/2017 CHIEF COMPLAINT: Edema and cellulitis of the lower extremities. HISTORY OF PRESENT ILLNESS: This gentleman is doing well and is probably able to go home. Cellulitis is improving and pain is under good control. There is less swelling. PHYSICAL EXAMINATION: His chest is clear. Cardiac exam is normal. The abdomen is protuberant and soft. Extremities are normal, other than the lower legs, which are definitely improving. IMPRESSION: 1. Cellulitis of the lower legs. 2. Old compound fracture of the left lower leg. 3. History of narcotic abuse. PLAN: Probably home later today. This will be arranged by the nurse practitioner.
== END 2017-01-24 11:06 | disposition home or self-care (01) | DRG 603 ==
LOC: EC 21:41 → 6SEL 01-22 04:41 → 4MS4W 01-22 18:36
PROVIDERS: ADMIT Family Medicine; ATTEND Family Medicine
DX: L03.115 Cellulitis of right lower limb (principal); I27.2 Other secondary pulmonary hypertension; E66.01 Morbid (severe) obesity due to excess calories; I87.2 Venous insufficiency (chronic) (peripheral); L03.116 Cellulitis of left lower limb; F17.210 Nicotine dependence, cigarettes, uncomplicated; G40.909 Epilepsy, unspecified, not intractable, without status epilepticus; F32.9 Major depressive disorder, single episode, unspecified; G89.29 Other chronic pain; M54.9 Dorsalgia, unspecified; R07.9 Chest pain, unspecified; Z79.899 Other long term (current) drug therapy; Z68.41 Body mass index [BMI] 40.0-44.9, adult
CPT/HCPCS: 36415; 71020; 71275; 80048; 80053; 81003; 82550; 82553; 83735; 83880; 84484; 85025; 85379; 85610; 85730; 93005; 93306; 93970; 96374; 99285

== ENCOUNTER 2017-03-25 08:31 | Emergency (ER) | payer OTHER ==
[2017-03-25 08:37] VITALS: BP 127/66; PULSE 77; RESP 20; TEMP 98.7
--- NOTE | 2017-03-25 09:02 | ED ---
General Adult HPI - General Chief complaint: Extremity Problem,Nontraumatic Stated complaint: LEFT LEG AND ANKLE SWOLLEN AND LEAKING Time Seen by Provider: 03/25/17 08:43 Source: patient, RN notes reviewed Mode of arrival: wheelchair Limitations: no limitations - History of Present Illness Initial comments: Patient's a 57-year-old male who presents emergency room today with chief complaint of left lower leg swelling and edema over the last 5 days. Patient does admit that he's had similar symptoms was the past when he was diagnosed cellulitis. Patient does admit that he's noticed some pain some discomfort that 's been increasing the last few days. Does admit some mild redness to the area was some increased swelling. Does admit that he noticed some clear drainage coming from the left lower ramírez area over the last night. Patient denies any other complaints or symptoms. Denies any injury or trauma. Denies any difficulty breathing or shortness of breath. He does admit to a history of previous drug abuse currently on methadone and history of hepatitis C. Patient denies any recent fever, chills, shortness of breath, chest pain, back pain, abdominal pain, nausea or vomiting, numbness or tingling, dysuria or hematuria, constipation or diarrhea, headaches or visual changes, or any other complaints. - Related Data Home Medications Medication Instructions Recorded Confirmed Amitriptyline HCl [Elavil] 50 mg PO HS 01/16/17 01/22/17 Gabapentin 600 mg PO TID 01/16/17 01/22/17 Omeprazole [PriLOSEC] 20 mg PO AC-BID 01/16/17 01/22/17 Potassium Chloride [Klor-Con 20] 20 meq PO DAILY 01/16/17 01/22/17 Topiramate [Topamax] 50 mg PO BID 01/16/17 01/22/17 Meclizine HCl 12.5 mg PO TID 01/22/17 01/22/17 Methadone HCl [Methadone Intensol] 120 mg PO DAILY 01/22/17 01/22/17 Previous Rx's Medication Instructions Recorded Clindamycin HCl [Cleocin] 300 mg PO Q6HR #40 cap 01/24/17 Furosemide [Lasix] 40 mg PO DAILY #30 tab 01/24/17 Cephalexin [Keflex] 500 mg PO Q12HR 10 Days 03/25/17 Allergies Allergy/AdvReac Type Severity Reaction Status Date / Time No Known Allergies Allergy Verified 03/25/17 08:37 Review of Systems ROS Statement: Those systems with pertinent positive or pertinent negative responses have been documented in the HPI. ROS Other: All systems not noted in ROS Statement are negative. Past Medical History Past Medical History: Seizure Disorder Additional Past Medical History / Comment(s): vertigo, chronic back pain, history of drug abuse-on methadone History of Any Multi-Drug Resistant Organisms: None Reported Past Surgical History: Orthopedic Surgery Additional Past Surgical History / Comment(s): left leg Past Psychological History: Depression Smoking Status: Current every day smoker Past Alcohol Use History: None Reported Past Drug Use History: None Reported General Exam - General Exam Comments Initial Comments: General: The patient is awake and alert, in no distress, and does not appear acutely ill. Eye: Pupils are equal, round and reactive to light, extra-ocular movements are intact. No nystagmus. There is normal conjunctiva bilaterally. No signs of icterus. Ears, nose, mouth and throat: There are moist mucous membranes and no oral lesions. Neck: The neck is supple, there is no tenderness or JVD. Cardiovascular: There is a regular rate and rhythm. No murmur, rub or gallop is appreciated. Respiratory: Lungs are clear to auscultation, respirations are non-labored, breath sounds are equal. No wheezes, stridor, rales, or rhonchi. Gastrointestinal: Soft, non-distended, non-tender abdomen without masses or organomegaly noted. There is no rebound or guarding present. No CVA tenderness. Bowel sounds are unremarkable. Musculoskeletal: Normal ROM, no tenderness. Strength 5/5. Sensation intact. Pulses equal bilaterally 2+. Neurological: A&O x 3. CN II-XII intact, There are no obvious motor or sensory deficits. Coordination appears grossly intact. Speech is normal. Skin: Mild swelling to the lower extremity's. Mild increased redness to the left side. Patient does have a clear drainage coming from an old suture line from a old trauma to the left ankle. Fluid is clear in color. No lymphangitic streaking. Mild tenderness on exam to the anterior aspect of left ankle and lower ramírez. Psychiatric: Cooperative, appropriate mood & affect, normal judgment. Limitations: no limitations Course Vital Signs 03/25/17 08:34 Temperature 98.7 F Pulse Rate 77 Respiratory 20 Rate Blood Pressure 127/66 O2 Sat by Pulse 95 Oximetry Medical Decision Making - Medical Decision Making Case discussed in detail with attending physician Dr. Jane. Patient's ultrasound negative for any acute DVT. Results were discussed with the patient. He'll be started on antibiotics cover for cellulitis infection as he does mention that he had similar findings in January of this year and was started on antibiotics. Patient is advised close follow-up family doctor over the next 2 days return here to the emergency room if any symptoms increase or worsen or for any other concerns. Disposition Clinical Impression: Cellulitis Disposition: HOME SELF-CARE Condition: Good Instructions: Cellulitis (ED) Additional Instructions: Please use medication as discussed. Please follow-up with family doctor in the next 2 days of symptoms have not improved. Please return to emergency room if the symptoms increase or worsen or for any other concerns. Prescriptions: Cephalexin [Keflex] 500 mg PO Q12HR 10 Days Referrals: Epi Castanon MD [Primary Care Provider] - 1-2 days Time of Disposition: 10:00
--- NOTE | 2017-03-25 09:54 | US ---
EXAMINATION TYPE: US venous doppler duplex LE LT DATE OF EXAM: 03/25/2017 9:23 AM COMPARISON: US 2017 CLINICAL HISTORY: 57-year-old male with Pain. EC patient with left lower leg pain, redness, and serou s drainage from left anterior lower leg incision scars from prior compound fracture 1994. Patient 's stated he had been up on feet 2 days in row mowing lawn, etc.; large body habitus SIDE PERFORMED: Left TECHNIQUE: The lower extremity deep venous system is examined utilizing real time linear array sonog joyce with graded compression, doppler sonography and color-flow sonography. FINDINGS: VESSELS IMAGED: Common Femoral Vein Deep Femoral Vein Greater Saphenous Vein * Femoral Vein Popliteal Vein Small Saphenous Vein * Proximal Calf Veins Posterior tibial veins (* superficial vessels) Left Leg: Negative for DVT IMPRESSION: No evidence for DVT within the left lower extremity.
== END 2017-03-25 10:05 | disposition home or self-care (01) ==
LOC: EC 08:31
DX: L03.116 Cellulitis of left lower limb (principal); R60.0 Localized edema; G40.909 Epilepsy, unspecified, not intractable, without status epilepticus; F32.9 Major depressive disorder, single episode, unspecified; F17.200 Nicotine dependence, unspecified, uncomplicated; Z79.899 Other long term (current) drug therapy; Z86.69 Personal history of other diseases of the nervous system and sense organs; Z87.898 Personal history of other specified conditions; Z98.890 Other specified postprocedural states
CPT/HCPCS: 99283

== ENCOUNTER 2017-10-27 13:39 | Emergency (ER) | payer OTHER ==
[2017-10-27 13:58] VITALS: BP 144/79; PULSE 86; RESP 18; TEMP 98
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
--- NOTE | 2017-10-27 14:25 | XR ---
EXAMINATION TYPE: XR wrist complete RT DATE OF EXAM: 10/27/2017 COMPARISON: Right hand same date HISTORY: Pain swelling after punching injury TECHNIQUE: 4 view right wrist FINDINGS: Dedicated images over the right wrist are negative without evidence of fracture or dislocat ion within the carpal region. The joint spaces at this level are normal. Follow-up exam can be perfor med 7-10 days from acute trauma for continued pain. If there is pain at the anatomic snuff box, nucle ar medicine bone scan could be performed for additional evaluation. Note is made of a distal comminuted third metacarpal fracture. See right hand dictation same date. IMPRESSION: 1. Normal 4 view right wrist. Follow-up exams can be performed 7-10 days from acute trauma for nory nued pain within the wrist region. 2. Comminuted distal metaphyseal third metacarpal fracture. Please see hand dictation same date
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
== END 2017-10-27 14:48 | disposition home or self-care (01) ==
LOC: EC 13:39
DX: S62.302A Unspecified fracture of third metacarpal bone, right hand, initial encounter for closed fracture (principal); W22.01XA Walked into wall, initial encounter; F32.9 Major depressive disorder, single episode, unspecified; F17.200 Nicotine dependence, unspecified, uncomplicated; Z86.69 Personal history of other diseases of the nervous system and sense organs; Z79.891 Long term (current) use of opiate analgesic; Z79.899 Other long term (current) drug therapy
CPT/HCPCS: 29125; 99283

== ENCOUNTER 2018-03-25 16:45 | Emergency (ER) | payer OTHER ==
[2018-03-25 16:59] VITALS: RESP 18; TEMP 98.3
[2018-03-25] MEDS ORDERED: IBUPROFEN 800 MG TAB PO STA (17:37)
[2018-03-25] MEDS ORDERED: DIPH,PERTUS(ACELL)TETVAC-LF 0.5 ML VIAL IM ONE (17:39)
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
[2018-03-25] MEDS ORDERED: BACITRACIN 500 UNIT/GM OINT 28.4 GM TUBE TOPICAL ONE (18:10)
[2018-03-25] MEDS ORDERED: TOPICAL SKIN ADHESIVE 1 EACH AMP TOPICAL ONE (18:10)
--- NOTE | 2018-03-25 18:18 | XR ---
EXAMINATION TYPE: XR shoulder complete 3 views LT, XR humerus 2 views LT, XR elbow complete 3 views LT XR knee complete 3 views LT, DATE OF EXAM: 03/25/2018 COMPARISON: NONE HISTORY: 58-year-old male with pain after fall today FINDINGS: Left shoulder: There is some capsular swelling and slight offset at the AC joint. Mild degenerative spurring at the glenohumeral joint. Subacromial space is preserved. No acute fracture or dislocation seen. Visualized left hemithorax is clear. Left humerus: No acute fracture. Loose body along the lower bicipital groove. Elbow: There is prominent soft tissue swelling about the elbow especially posteriorly and medially. No elbow joint effusion; no acute fracture, subluxation, or dislocation. Left knee: Tricompartmental degenerative spurring. [id number] knee joint effusion. Extensor mechanism eze ears intact. Osteopenia. No acute fracture, subluxation, or dislocation seen. IMPRESSION: 1. Left shoulder: Some capsular swelling and slight offset at the AC joint. This could be on a chroni c degenerative basis. If there is point tenderness here, a mild to moderate AC joint sprain is an alt ernative possibility. Otherwise, no acute osseous abnormality seen. 2. Left humerus and elbow: Prominent posterior and medial soft tissue swelling at the elbow. No acute osseous abnormality seen. 3. Left knee: Small to moderate knee joint effusion. Osteopenia. No acute osseous abnormality seen. I f concern for internal derangement, MRI can be performed.
[2018-03-25] MEDS ORDERED: BACITRACIN OINT 1 EACH PACKET TOPICAL STA (18:26)
[2018-03-25 18:52] VITALS: BP 165/85; PULSE 75
== END 2018-03-25 18:49 | disposition home or self-care (01) ==
LOC: EC 16:45
DX: S01.112A Laceration without foreign body of left eyelid and periocular area, initial encounter (principal); S80.212A Abrasion, left knee, initial encounter; S40.212A Abrasion of left shoulder, initial encounter; S50.312A Abrasion of left elbow, initial encounter; M17.12 Unilateral primary osteoarthritis, left knee; I50.9 Heart failure, unspecified; G40.909 Epilepsy, unspecified, not intractable, without status epilepticus; F32.9 Major depressive disorder, single episode, unspecified; F17.200 Nicotine dependence, unspecified, uncomplicated; Z79.891 Long term (current) use of opiate analgesic; Z79.899 Other long term (current) drug therapy; Z23 Encounter for immunization; V18.4XXA Pedal cycle driver injured in noncollision transport accident in traffic accident, initial encounter; Y92.89 Other specified places as the place of occurrence of the external cause; Y93.55 Activity, bike riding
CPT/HCPCS: 12013; 90471; 90715; 99283

== ENCOUNTER 2018-04-11 17:23 | Emergency (ER) | payer OTHER ==
[2018-04-11 17:34] VITALS: TEMP 99
[2018-04-11] MEDS ORDERED: LIDOCAINE 1% INJ 10MG/ML (20 ML MDV) SQ STA (17:47)
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
--- NOTE | 2018-04-11 18:37 | XR ---
PROCEDURE: XR hand complete RT-3V DATE AND TIME: 04/11/2018 6:14 PM REFERRING PHYSICIAN: Anthony Ferreira CLINICAL INDICATION: PHH, Pain TECHNIQUE: Department protocol. COMPARISON: 10/27/2017 FINDINGS: There is a mildly displaced, comminuted fracture involving nearly the entire shaft of the p roximal phalanx of the fifth finger. The fracture does not appear to involve the fifth MCP or the fif th PIP. There are no other fractures. The soft tissues show fifth finger soft tissue swelling. IMPRESSION: NO ACUTE PROCESS.
[2018-04-11 19:38] LABS: Basophils % (A) 1 %; Eosinophils # (A) 0.2 k/uL (0-0.7); Eosinophils % (A) 3 %; HCT 38.4 % (39.0-53.0); HGB 12.6 gm/dL (13.0-17.5); Lymphocytes # (A) 2.1 k/uL (1.0-4.8); Lymphocytes % (A) 36 %; MCH 30.4 pg (25.0-35.0); MCHC 32.7 g/dL (31.0-37.0); MCV 92.8 fL (80.0-100.0); Mean Platelet Volume 7.3; Monocytes # (A) 0.2 k/uL (0-1.0); Monocytes % (A) 4 %; Neutrophils # (A) 3.1 k/uL (1.3-7.7); Neutrophils % (A) 53 %; Platelet Count 166 k/uL (150-450); RBC 4.14 m/uL (4.30-5.90); RDW 15.1 % (11.5-15.5); WBC 5.8 k/uL (3.8-10.6)
[2018-04-11 19:53] LABS: ALT 22 U/L (21-72); AST 28 U/L (17-59); Albumin 4.4 g/dL (3.5-5.0); Alkaline Phosphatase 69 U/L (38-126); Anion Gap 10 mmol/L; Blood Urea Nitrogen 9 mg/dL (9-20); Calcium 9.4 mg/dL (8.4-10.2); Carbon Dioxide 25 mmol/L (22-30); Chloride 104 mmol/L (98-107); Glucose 79 mg/dL (74-99); Potassium 3.5 mmol/L (3.5-5.1); Sodium 139 mmol/L (137-145); Total Bilirubin 0.5 mg/dL (0.2-1.3)
--- NOTE | 2018-04-11 20:04 | XR ---
PROCEDURE: XR hand limited RT 2V - POST REDUCTION STUDY DATE AND TIME: 04/11/2018 6:57 PM REFERRING PHYSICIAN: Anthony Ferreira CLINICAL INDICATION: PHH, Postreduction TECHNIQUE: Post reduction AP and reverse fan lateral COMPARISON: Prereduction 04/11/2018 study at 6:09 PM FINDINGS: Since the prior study a fifth finger is now seen to be in anatomic position and alignment, with the fracture fragments also appearing anatomic at the present time. There remains no definite involvement of the fifth MCP or PIP joint. No other fractures. IMPRESSION: INTERVAL REDUCTION.
--- NOTE | 2018-04-11 21:13 | US ---
EXAMINATION TYPE: US venous doppler duplex LE LT DATE OF EXAM: 04/11/2018 8:56 PM COMPARISON: NONE CLINICAL HISTORY: Pain. Pain and edema SIDE PERFORMED: Left TECHNIQUE: The lower extremity deep venous system is examined utilizing real time linear array sonog joyce with graded compression, doppler sonography and color-flow sonography. VESSELS IMAGED: External Iliac Vein (EIV) Common Femoral Vein Deep Femoral Vein Greater Saphenous Vein * Femoral Vein Popliteal Vein Small Saphenous Vein * Proximal Calf Veins (* superficial vessels) DESCRIPTION: Grayscale, color doppler, spectral doppler imaging performed of the deep veins of the lo wer extremities. There is normal flow, compressibility, vascular waveforms. IMPRESSION: NEGATIVE FOR DVT, LEFT LOWER EXTREMITY.
--- NOTE | 2018-04-11 21:21 | XR ---
PROCEDURE: XR tibia fibula LT, 2 views DATE AND TIME: 04/11/2018 8:36 PM REFERRING PHYSICIAN: Anthony Ferreira CLINICAL INDICATION: PHH, Pain TECHNIQUE: Department protocol. COMPARISON: None FINDINGS: Healed remodeled fracture of the shafts of the distal tibia and fibula are noted. There is no acute o r subacute fracture or malalignment. The soft tissues are unremarkable. There are prominent degenerative joint changes at the ankle, and less prominent degenerative joint ch anges at the knee. IMPRESSION: No definite acute process.
[2018-04-11 21:47] VITALS: BP 131/62; PULSE 71; RESP 18
== END 2018-04-11 21:47 | disposition home or self-care (01) ==
LOC: EC 17:23
DX: S62.616A Displaced fracture of proximal phalanx of right little finger, initial encounter for closed fracture (principal); V19.9XXA Pedal cyclist (driver) (passenger) injured in unspecified traffic accident, initial encounter; Y92.89 Other specified places as the place of occurrence of the external cause; R60.0 Localized edema; I50.9 Heart failure, unspecified; G40.409 Other generalized epilepsy and epileptic syndromes, not intractable, without status epilepticus; F32.9 Major depressive disorder, single episode, unspecified; F17.200 Nicotine dependence, unspecified, uncomplicated; Z79.899 Other long term (current) drug therapy
CPT/HCPCS: 99284 ×2; 26725 ×2; 36415; 80053; 85025; 87040; 73120; 73130; 73590; 93971; J2001

== ENCOUNTER 2019-05-20 13:30 | Emergency (ER) | payer OTHER ==
[2019-05-20 13:35] VITALS: RESP 18
[2019-05-20] MEDS ORDERED: IBUPROFEN 600 MG TAB PO STA (14:09)
--- NOTE | 2019-05-20 15:08 | CT ---
EXAMINATION TYPE: CT brain reza currie DATE OF EXAM: 05/20/2019 COMPARISON: NONE HISTORY: Pt was hit on top of head by ceiling. Pt c/o head and neck pain, three lacerations to top of head. CT DLP: 1822 mGycm. Automated Exposure Control for Dose Reduction was Utilized. TECHNIQUE: CT scan of the head and cervical spine are performed without contrast. FINDINGS: Motion artifact limits the examination. There is no acute intracranial hemorrhage, mass effect, or midline shift identified. Cerebellar tons ils are noted to be low-lying. The ventricles and sulci are within normal limits in size for the suyapa ent's age. The globes are intact and the visualized sinuses are clear. There is air seen within the intracranial venous sinuses. There is undulation of the nasal septum. Punctate calcifications over th e nasal bridge are typically benign and incidental. Mild atherosclerosis of the intracranial vasculat ure. Cervical spine is visualized in its entirety from C1 through upper thoracic levels and demonstrates s atisfactory alignment without evidence of acute fracture or dislocation. Prevertebral soft tissue ap pears within normal limits. Small posterior disc osteophyte complexes present at C5-C6. Intervertebr al disc space narrowing and endplate sclerosis is also seen at this level. There is straightening of usual cervical lordosis that may relate to patient positioning. Multilevel uncovertebral hypertrophy is seen as well as multilevel facet arthropathy. Evaluation of the spinal canal is limited on CT. The C1-C2 articulation is unremarkable. Scattered areas of atelectasis are seen within the lung bases a nd scattered blebs are also noted. IMPRESSION: 1. Motion artifact limits the examination, particularly of the cervical spine. No gross acute fractur e or dislocation is seen in the cervical spine. Mild multilevel degenerative disc disease of the cerv ical spine. 2. No acute intracranial hemorrhage, mass effect, or midline shift is seen. 3. Air is noted within the dural venous sinuses that could be on the basis of air injected through an intravenous catheter/IV. If the patient has not had recent catheter insertion occult fracture of the calvarium would be suspected.
--- NOTE | 2019-05-20 16:45 | ED ---
General Adult HPI - General Chief complaint: Wound/Laceration Stated complaint: Head injury Time Seen by Provider: 05/20/19 14:00 Source: patient Mode of arrival: ambulatory Limitations: no limitations - History of Present Illness Initial comments: Patient 51-year-old male presenting to emergency Department with a chief complaint of ceiling falling on the head. Patient reports he was working today when a drop ceiling fell directly on top of his head. Patient reports localized pain that is exacerbated with pressure. Patient reports the pain is in anatomic. Patient does report dizziness but denies any lightheadedness. Patient denies any blurry vision, gait instability, nausea or vomiting or diarrhea. Patient denies any one-sided muscle weakness or paresthesias. Patient denies taking medication to alleviate his symptoms. - Related Data Home Medications Medication Instructions Recorded Confirmed Omeprazole [PriLOSEC] 20 mg PO BID 01/16/17 12/27/18 Meclizine HCl 12.5 mg PO QID 01/22/17 12/27/18 Furosemide [Lasix] 80 mg PO DAILY 03/25/18 12/27/18 Gabapentin 800 mg PO TID 03/25/18 12/27/18 Topiramate [Topamax] 150 mg PO BID 03/25/18 12/27/18 Amoxicillin 250 mg PO TID 12/27/18 Methadone Liquid 60 mg PO 0600 12/27/18 Allergies Allergy/AdvReac Type Severity Reaction Status Date / Time No Known Allergies Allergy Verified 05/20/19 13:35 Review of Systems ROS Statement: Those systems with pertinent positive or pertinent negative responses have been documented in the HPI. ROS Other: All systems not noted in ROS Statement are negative. Past Medical History Past Medical History: Heart Failure, Seizure Disorder Additional Past Medical History / Comment(s): vertigo, chronic back pain, last seizure unknown date, irregular heartbeat, on antibioitics for gum infection History of Any Multi-Drug Resistant Organisms: None Reported Past Surgical History: Orthopedic Surgery, Tonsillectomy Additional Past Surgical History / Comment(s): left leg surgery for compound fx Past Anesthesia/Blood Transfusion Reactions: Motion Sickness Past Psychological History: No Psychological Hx Reported Additional Psychological History / Comment(s): denies Smoking Status: Current every day smoker Past Alcohol Use History: Rare Additional Past Alcohol Use History / Comment(s): smokes 1/2 PPD, has smoked for 30 yrs Past Drug Use History: Marijuana General Exam Limitations: no limitations General appearance: alert, in no apparent distress Head exam: Present: normocephalic, normal inspection, other (Negative Vega sign, negative palpable ecchymosis, negative tympany.). Absent: atraumatic (3 lacerations measuring approximately 3 cm each on the parietal region. Hematoma measuring approximately 4 cm in diameter. ) Eye exam: Present: normal appearance, PERRL, EOMI. Absent: conjunctival injection, other Pupils: Present: normal accommodation ENT exam: Present: normal exam, normal oropharynx, mucous membranes moist, TM's normal bilaterally, normal external ear exam Neck exam: Present: normal inspection, full ROM Respiratory exam: Present: normal lung sounds bilaterally Cardiovascular Exam: Present: regular rate, normal rhythm, normal heart sounds GI/Abdominal exam: Present: soft, normal bowel sounds Extremities exam: Present: normal inspection, full ROM Back exam: Present: normal inspection, full ROM. Absent: CVA tenderness (R), CVA tenderness (L) Neurological exam: Present: alert, oriented X3, CN II-XII intact, normal gait, other (Patient ineurovascular intact.) Psychiatric exam: Present: normal affect, normal mood Skin exam: Present: warm, intact, normal color Course Vital Signs 05/20/19 13:31 Temperature 98.3 F Pulse Rate 89 Respiratory 18 Rate Blood Pressure 133/87 O2 Sat by Pulse 97 Oximetry Medical Decision Making - Medical Decision Making Patient is a 59-year-old male presenting to emergency Department with a chief complaint son falling on his head. Patient is neurovascularly intact. Patient denies any gait instability, blurry vision, nausea vomiting. Based on physical examination the patient appears to have a hematoma. No bony deformities undetected. Patient does have 2 abrasions measuring approximately 3 cm each. C T of the brain and C-spine is indicative of air in the venous sinus. Patient has not had any recent intravenous catheterization. No definitive fracture noted. I spoke with Dr. Cherri Delgadillo for [facility]. Patient will be admitted and evaluated neurosurgery. I spoke with the patient regarding the transfer. Patient states that he has animals that he wants to take care of at home. Patient states that he is for is going to go home and then request a lease purchase truck driver to pick him up and give him a ride to the hospital. Patient is currently undergoing a substance abuse rehab program. I advised the patient to drive directly to the hospital but he states this is his current plan. Patient will be signed out AGAINST MEDICAL ADVICE and all of the transfer paperwork will be given to him. Dressing will be applied to his head. Patient verbalizes full understanding. I spoke with Dr. Ramirez, the attending, who is in agreement with the treatment plan. Disposition Clinical Impression: Blunt head trauma Disposition: Left Against Medical Advice Condition: Stable Instructions (If sedation given, give patient instructions): Concussion (ED) Additional Instructions: Please go straight to the emergency department at [facility]. Please do not eat or drink anything. Is patient prescribed a controlled substance at d/c from ED?: No Referrals: Epi Castanon MD [Primary Care Provider] - 1-2 days Time of Disposition: 16:45
[2019-05-20 16:47] VITALS: BP 128/82; PULSE 85; TEMP 98
== END 2019-05-20 17:14 | disposition left against medical advice (07) ==
LOC: EC 13:30
DX: S01.01XA Laceration without foreign body of scalp, initial encounter (principal); I50.9 Heart failure, unspecified; G40.909 Epilepsy, unspecified, not intractable, without status epilepticus; F17.210 Nicotine dependence, cigarettes, uncomplicated; Z79.899 Other long term (current) drug therapy; W20.8XXA Other cause of strike by thrown, projected or falling object, initial encounter; Y92.009 Unspecified place in unspecified non-institutional (private) residence as the place of occurrence of the external cause
CPT/HCPCS: 70450; 72125; 99283

== ENCOUNTER 2019-07-09 11:11 | Emergency (ER) | payer OTHER ==
[2019-07-09] MEDS ORDERED: HYDROcodone/APAP 5-325MG 1 EACH TAB PO STA (12:59)
[2019-07-09] MEDS ORDERED: ORPHENADRINE 30 MG/ML 2 ML VIAL IM STA (12:59)
[2019-07-09] MEDS ORDERED: KETOROLAC 60 MG/2 ML VIAL IM STA (12:59)
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
--- NOTE | 2019-07-09 13:41 | XR ---
EXAMINATION TYPE: XR lumbar spine 2 or 3V DATE OF EXAM: 07/09/2019 CLINICAL HISTORY: Back pain TECHNIQUE: Frontal, lateral, and oblique images of the lumbar spine are obtained. COMPARISON: None FINDINGS: There are 6 lumbar type vertebral bodies identified. The lowest lumbar vertebral body jaylon l be deemed L6. Compression deformity is seen of L4 with retropulsion of the superior endplate 2 mm a nd inferior endplate 2 mm. Compression deformity is severe with approximately 80% collapse anteriorly . Multilevel anterior osteophytes and facet arthropathy. Slight reverse S-shaped scoliotic curvature of the lumbar spine. No overlying dilated bowel. IMPRESSION: 1. Six lumbar type vertebral bodies. The lowest vertebral body as denoted L6. Compression deformity o f L3 is seen of greater than 80% collapse anteriorly with 2 mm retropulsion of both the superior and inferior endplates. No priors available for comparison to determine acuity. Correlation with point te nderness is recommended. If there is clinical uncertainty MRI could evaluate for bone marrow edema. 2. Moderate multilevel degenerative disc disease.
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
[2019-07-09] MEDS ORDERED: IBUPROFEN 600 MG STARTER PACK 4 TAB BTL PO STA (15:15)
[2019-07-09] MEDS ORDERED: ACET/COD 300 MG/30 MG STARTER PACK 6 TAB BTL PO STA (15:15)
[2019-07-09 15:54] VITALS: BP 128/74; PULSE 67; RESP 17; TEMP 98.1
== END 2019-07-09 15:54 | disposition home or self-care (01) ==
LOC: EC 11:11
DX: S80.12XA Contusion of left lower leg, initial encounter (principal); S32.039A Unspecified fracture of third lumbar vertebra, initial encounter for closed fracture; I50.9 Heart failure, unspecified; G40.909 Epilepsy, unspecified, not intractable, without status epilepticus; F17.200 Nicotine dependence, unspecified, uncomplicated; Z79.899 Other long term (current) drug therapy; V29.49XA Motorcycle driver injured in collision with other motor vehicles in traffic accident, initial encounter; Y93.55 Activity, bike riding; Y92.410 Unspecified street and highway as the place of occurrence of the external cause
CPT/HCPCS: 72100; 73590; 99284; 96372 ×2; J2360; J1885